=== PATIENT | male | born 1960 | race Caucasian/White ===

== ENCOUNTER 2018-01-26 17:17 | Emergency (ER) | payer OTHER ==
[~2018-01-26] VITALS: Ht 175.3 cm; Wt 85.3 kg
[2018-01-26] MEDS ORDERED: COZAAR50 MG PO (17:26)
[2018-01-26] MEDS ORDERED: FENOFIBRATE160 MG PO (17:27)
[2018-01-26] MEDS ORDERED: CATAFLAN (17:28)
== END 2018-01-26 18:55 | disposition home or self-care (01) ==
LOC: ER 17:17
DX: S86.811A Strain of other muscle(s) and tendon(s) at lower leg level, right leg, initial encounter (principal); X50.9XXA Other and unspecified overexertion or strenuous movements or postures, initial encounter; Y93.89 Activity, other specified; Y92.89 Other specified places as the place of occurrence of the external cause; Y99.8 Other external cause status

== ENCOUNTER 2019-12-06 12:27 | Outpatient (CLI) | payer OTHER ==
[~2019-12-06 12:27] MED LIST: CATAFLAN; COZAAR50 MG PO; FENOFIBRATE160 MG PO
== END 2019-12-06 12:28 | disposition home or self-care (01) ==
LOC: SONOGRAMA 12:27 → MAMO-SONO 13:15
PROVIDERS: ATTEND Specialist
DX: R10.30 Lower abdominal pain, unspecified (principal)